=== PATIENT | male | born 2005 | race African-American/Black ===

== ENCOUNTER → 2025-06-07 | Outpatient (CLI) | payer OTHER | LOC: M RAD 09:32 | PROVIDERS: ATTEND Physician Assistant | DX: R06.00 Dyspnea, unspecified (principal) ==

== ENCOUNTER → 2025-06-22 | Outpatient (CLI) | payer OTHER ==
[~2025-06-22] MED LIST: METHACHOLINE KIT (6 VIAL.NEB PREMIX) INH ONE
== END ==
LOC: M CARPUL 09:10
PROVIDERS: ATTEND Physician Assistant
DX: R06.00 Dyspnea, unspecified (principal)
CPT/HCPCS: 94070; 95070; J7674